=== PATIENT | male | born 1985 | race Hispanic/Latino ===

== ENCOUNTER 2021-11-25 13:01 | Inpatient (IN) | payer SELFPAY ==
--- OUTSIDE RECORDS SUMMARY | 2021-11-25 13:04 | XMS REPORT | Continuity of Care Document ---
:1985 Author Organization [facility] t Address [address] [place] [address] Care Team Providers Name Role Phone Jessy Attending Clinician Unavailable Cezar Calix MD Attending Clinician Cezar CALIX Attending Clinician Unavailable Problems This patient has no known problems. Allergies, Adverse Reactions, Alerts Allergy Allergy Status Severity Reaction(s) Onset Inactive Treating Comm ents Source Name Type Date Date Clinician NO KNOWN Drug Active Univers ALLERGIE Class ity of [facility] Social History Social Habit Start Date Stop Date Quantity Comments Source Exposure to Not sure [facility] SARS-CoV-2 (event) [facility] Sex Assigned At [birth year] [facility] 00:00:00 00:00:00 [facility] Smoking Status Start Date Stop Date Source Unknown if ever smoked [facility] Medications Ordered Filled Start Stop Current Ordering Indication Dosage Frequency Signature Comments Components Source Medication Medication Date Date Medication? Clinician (SIG) Name Name cloNIDine 2020- No .1mg 0.1 mg, Univ ers (CATAPRES) 02-03 Oral, ity of tablet 0.1 08:45: 07:39 ONCE, 1 Renato as mg 00 :00 dose, [facility] 02/03/21 at [place] 0345, STAT Vital Signs Vital Name Observation Time Observation Value Comments Source Systolic blood 2021-02-03 07:54:00 157 mm[Hg] Univer sity [facility] Diastolic blood 2021-02-03 07:54:00 99 mm[Hg] Unive [facility] Heart rate 2021-02-03 07:54:00 110 /min [facility] Respiratory rate 2021-02-03 07:54:00 18 /min [facility] Oxygen saturation in 2021-02-03 07:54:00 99 /min [facility] Arterial blood by [facility] Pulse oximetry [place] Body temperature 2021-02-03 07:20:00 36.83 Lisset [facility] Body weight 2021-02-03 07:20:00 117.935 kg [facility] Procedures This patient has no known procedures. Encounters Start End Encounter Admission Attending Care Care Encounter Source Date/Time Date/Time Type Type Clinicians Facility Department ID 2021-09-24 Outpatient [facility] [id number] [facility] [address] 13:03:03 [id number] [facility]es [facility] 2021-09-24 Outpatient Jessy, [facility]ML[facility] [id number] [address] 12:06:22 [place] [id number] kes - [facility] l Outpati ent [facility] 2021-02-03 2021-02-03 Emergency Fifi, TRAUMA [id number] Univers 02:22:00 03:05:00 [facility] [id number] [id number] [id number] [place] 2021-02-03 2021-02-03 Emergency X FIFI, [facility] ERT [id number] Univers 02:22:00 02:22:00 KISHA blanco [facility] 2021-01-09 2021-01-09 [facility] [id number] [facility] 2020-07-17 2020-07-17 [facility] [id number] [facility] 00:[facility]00 [facility] ent Clinics Results Test Description Test Time Test Comments Results Result Comments Source LIPID PANEL 2021-09-05 03:42:47 Test Item Value Reference Range Interpretation Comme nts CHOLESTEROL (test code = 2210) 285 MG/DL <200 H TRIGLYCERIDES (test code = 2232) 195 MG/DL <150 H HDL CHOLESTEROL (test code = 60 MG/DL >39 2219) CALC LDL CHOL (test code = 2237) 188 MG/DL <100 H NOTE: CALCULATED LDL IS BASED ON MANE-CARABALLO METHOD WHICHINCLUDES A DJUSTABLE TRIGLYCERIDE:VL DL CHOLESTEROL RATIO.THIS FACT OR VARIES BY MEASURED TRIGLY CERIDE AND NON-HDLCHOLESTE ROL CONCENTRATIONS WITH INCREASED CALCULATED LDL SEENIN HIGHER T RIGLYCERIDE OR LOWER NON-HDL S PECIMENS. FOR MOREINFORMATION , SEE CLIENT ANNOUNCEMENT AT [email or web address] RATIO LDL/HDL (test code = 3.13 RATIO <3.55 2237) COMPREHENSIVE METABOLIC [id number] 03:42:47 Test Item Value Reference Range Interpretation Comments GLUCOSE (test code = 100 MG/DL 70-99 H 2216) BUN (test code = 12 MG/DL 6-20 2207) CREATININE (test 0.78 MG/DL 0.80-1.40 L EFFECTIVE code = 221) 08/11/2021, [facility] HAS IMPLEMENTED THE NKF-ASN RECOMME NDED KD-EPI EGF R REFIT CALCULATI ON THAT DOES NOT I NCLUDE A COEFFICIENT FORRACE. FOR MO RE INFORMATION, SE E ANNOUNCEMENT [email or web address] eGFR (2020 CKD-EPI) 119 >60 (test code = 51397) ML/MIN/1.73 CALC BUN/CREAT (test 15 RATIO 6-28 code = 2235) SODIUM (test code = 138 MEQ/L 079-143 7659) POTASSIUM (test code 4.3 MEQ/L 3.5-5.4 = 2227) CHLORIDE (test code 100 MEQ/L 95-107 = 2215) CARBON DIOXIDE (test 28 MEQ/L 19-31 code = 2206) CALCIUM (test code = 10.0 MG/DL 8.5-10.5 2208) PROTEIN, TOTAL (test 7.8 G/DL 6.1-8.3 code = 2229) ALBUMIN (test code = 4.8 G/DL 3.5-5.2 2200) CALC GLOBULIN (test 3.0 G/DL 1.9-3.7 code = 2240) CALC A/G RATIO (test 1.6 RATIO 1.0-2.6 code = 2234) BILIRUBIN, TOTAL 0.8 MG/DL See_Comment [Automated message] (test code = 2207) The syste m which generated this result transmitted ref erence range: <=1.2. T he reference range was not used to int erpret this result as normal/abnormal . ALKALINE PHOSPHATASE 81 U/L 40-117 (test code = 2203) AST (test code = 60 U/L 9-50 H 2217) ALT (test code = 104 U/L 5-50 H UNLE SS 2218) OTHERWISE INDIC ATED, ALL TESTING PER FORMED [facility], I [place]. [address] [facility] [place] [address] LABORATORY DIRE CTOR: LISA GANN M.D. CLIA NUMBER [id number] CAP ACCREDITATION N O. [id number]
[2021-11-25] MEDS ORDERED: MORPHINE 4 MG/ML SYR ONE (13:45)
[2021-11-25] MEDS ORDERED: ONDANSETRON 4 MG/2 ML VIAL ONE (13:45)
[2021-11-25] MEDS ORDERED: NA CHLORIDE 0.9% 1,000 ML ONE ×3 (13:45→21:02)
[2021-11-25 13:57] LABS: Absolute Lymphocytes (CBC) 1.1 K/uL (0.7-4.9); Hematocrit 40.3 % (39.6-49.0); Lymphocytes % 12.5 % (15.3-44.8); MPV 6.4 fL (7.6-11.3); RBC Red Blood Cell Count 4.56 M/uL (4.33-5.43)
[2021-11-25 14:17] LABS: ALT/SGPT 78 U/L (12-78); AST/SGOT 31 U/L (15-37); Albumin 3.6 g/dL (3.4-5.0); Alkaline Phosphatase 82 U/L (45-117); BUN Blood Urea Nitrogen 13 mg/dL (7-18); Bicarbonate 24 mmol/L (21-32); Glucose Level 114 mg/dL (74-106); Lipase 39 U/L (73-393); Potassium 4.1 mmol/L (3.5-5.1); Protein, Total 7.9 g/dL (6.4-8.2); Sodium Level 135 mmol/L (136-145)
--- NOTE | 2021-11-25 14:39 | RAD REPORT ---
EXAM DESCRIPTION: CTAbdomen Pelvis W Contrast - 11/25/2021 2:32 pm CLINICAL HISTORY: Abdominal pain. rectal pain COMPARISON: No comparisons TECHNIQUE: Biphasic CT imaging of the abdomen and pelvis was performed with 100 ml non-ionic IV cont rast. All CT scans are performed using dose optimization technique as appropriate and may include automated exposure control or mA/KV adjustment according to patient size. FINDINGS: The lung bases are clear. The liver is diffusely fatty. Spleen, pancreas, adrenal glands and kidneys are within normal limits. No bowel obstruction, free air, free fluid or abscess. Moderate fat containing inguinal hernias. The appendix is normal. Small left perirectal abscess is suspected measuring 19 x 19 mm. No evidence of s ignificant lymphadenopathy. No suspicious bony findings. IMPRESSION: 19 mm left perirectal abscess suspected. Moderate fat containing bilateral inguinal hernias. Fatty liver.
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
[2021-11-25] MEDS ORDERED: ACETAMINOPHEN 500 MG TAB PO PRN (15:10)
[2021-11-25] MEDS ORDERED: ONDANSETRON 4 MG/2 ML VIAL IV PRN (15:10)
[2021-11-25] MEDS ORDERED: HYDROCODONE/APAP 7.5/325 MG TAB PO PRN (15:15)
[2021-11-25] MEDS ORDERED: NA CHLORIDE 0.9% 100 ML IV ONE (15:20)
--- NOTE | 2021-11-25 15:20 | P.HP ---
Certification for Inpatient Patient admitted to: Inpatient With expected LOS: >2 Midnights Practitioner: I am a practitioner with admitting privileges, knowledge of patient current condition, hospital course, and medical plan of care. Services: Services provided to patient in accordance with Admission requirements found in Title 42 Section 412.3 of the Code of Federal Regulations Patient History Date of Service: 11/25/21 Reason for admission: Rectal abscess. History of Present Illness: 36-year-old male patient comes emergency room complaining of pain in the rectum area for the past couple of days. He has had recurrent pain over the past couple of days which is not developing an abscess and he also had associated fever chills. He decided to come into the emergency room for care and in the ED he had imaging done that revealed a perirectal abscess which perhaps is ready for I&D. He was started on empiric antibiotic therapy of Zosyn and he was asked to be evaluated by surgeon for incision and drainage procedure. Prior to encounter he denied any overt episode of fever, nausea, vomiting. He did feel lethargic. Allergies No Known Allergies Allergy (Unverified 06/02/16 17:22) Home Medications: Hydrocodone Bit/Acetaminophen [Hydrocodon-Acetaminoph 7.5-325] 1 each PO Q4HP PRN #20 tablet 03/20/12 Mag Hydroxide 8% [Milk Of Magnesia] 30 ml PO PRN PRN #0 ucup 03/20/12 - Social History Alcohol use: Yes CD- Drugs: No Caffeine use: Yes Review of Systems General: Chills, Weakness, Malaise Eyes: Unremarkable ENT: Unremarkable Respiratory: Unremarkable Cardiovascular: Unremarkable Gastrointestinal: Abdominal Pain Genitourinary: Unremarkable Musculoskeletal: Unremarkable Neurological: Unremarkable Physical Examination - Physical Exam General: Alert, Oriented x3 HEENT: Atraumatic, Normocephalic Neck: Supple Respiratory: Clear to auscultation bilaterally Cardiovascular: Regular rate/rhythm, Normal S1 S2 Gastrointestinal: Soft and benign Musculoskeletal: No swelling Neurological: Normal strength at 5/5 x4 extr, Cranial nerves 3-12 intact External genitalia: No edema - Studies Laboratory Data (last 24 hrs) 11/25/21 13:45: Sodium 135 L, Potassium 4.1, BUN 13, Creatinine 0.81, Glucose 114 H, Total Bilirubin 1.0, AST 31, ALT 78, Alkaline Phosphatase 82, Lipase 39 L 11/25/21 13:45: WBC 9.1, Hgb 13.7, Hct 40.3, Plt Count 314 Assessment and Plan - Plan Perirectal: Patient does have a perirectal abscess diagnosed on imaging clinically. He will be kept n.p.o. from midnight for incision and drainage by surgeon. We will continue empiric antibiotic of Zosyn pending for review. Continue narcotic medication for pain relief. VTE Prophylaxis: Lovenox. Code status: Full code. - Advance Directives Does patient have a Living Will: No Does patient have a Durable POA for Healthcare: No
[2021-11-25] MEDS ORDERED: PIPERACIL/TAZO 3.375 GM VIAL IV ONE (15:21)
[2021-11-25] MEDS: NA CHLORIDE 0.9% 1,000 ML IV SCH (16:00)
[2021-11-25 18:17] VITALS: BMI 33.9
[2021-11-25] MEDS ORDERED: INFLUENZA VACCINE (for 6+ mo) 0.5 ML DOSE IMVAC ONE (19:00)
[2021-11-25] MEDS ORDERED: ENOXAPARIN 40 MG/0.4 ML SQ ONE (21:02)
[2021-11-25] MEDS ORDERED: MORPHINE 2 MG/ML SYR ONE (21:02)
[2021-11-25] MEDS: MORPHINE 2 MG/ML SYR IV PRN (21:05)
[2021-11-25] MEDS: ENOXAPARIN 40 MG/0.4 ML SQ SCH (21:05)
[2021-11-26] MEDS: NA CHLORIDE 0.9% 1,000 ML IV SCH ×3 (01:24→16:23)
[2021-11-26 03:43] LABS: Protime INR 1.04
[2021-11-26 03:45] LABS: Hematocrit 38.7 % (39.6-49.0); Lymphocytes % 24.7 % (15.3-44.8); MPV 6.6 fL (7.6-11.3); RBC Red Blood Cell Count 4.42 M/uL (4.33-5.43)
[2021-11-26 03:52] LABS: BUN Blood Urea Nitrogen 10 mg/dL (7-18); Bicarbonate 27 mmol/L (21-32); Glucose Level 94 mg/dL (74-106); Potassium 3.7 mmol/L (3.5-5.1); Sodium Level 137 mmol/L (136-145)
--- NOTE | 2021-11-26 08:41 | P.PN ---
Subjective Date of Service: 11/27/21 Chief Complaint: Rectal abscess. Subjective: No new changes Physical Examination - Vital Signs Temperature: 98.3 F Blood Pressure: 128/91 Pulse: 69 Respirations: 16 Pulse Ox (%): 97 - Physical Exam General: Alert, Oriented x3 HEENT: Atraumatic, Normocephalic Respiratory: Normal air movement Cardiovascular: Regular rate/rhythm, Normal S1 S2 Gastrointestinal: Soft and benign, Other (rectal pain) Neurological: Normal speech, Normal strength at 5/5 x4 extr, Cranial nerves 3-12 intact - Studies Laboratory Data (last 24 hrs) 11/25/21 13:45: Sodium 135 L, Potassium 4.1, BUN 13, Creatinine 0.81, Glucose 114 H, Total Bilirubin 1.0, AST 31, ALT 78, Alkaline Phosphatase 82, Lipase 39 L 11/25/21 13:45: WBC 9.1, Hgb 13.7, Hct 40.3, Plt Count 314 Assessment And Plan - Plan Perirectal abscess: Scheduled for incision and drainage of rectal abscess today. We will continue sitz bath and and wound management as per surgery recommendation. We will continue Zosyn for management of perirectal abscess. Pain control with as needed morphine Hypertension: we will monitor vitals per unit protocol and continue antihypertensive medications. VTE Prophylaxis: Lovenox.
[2021-11-26] MEDS ORDERED: MORPHINE 2 MG/ML SYR ONE (08:42)
[2021-11-26] MEDS ORDERED: NA CHLORIDE 0.9% 1,000 ML ONE (08:43)
[2021-11-26] MEDS ORDERED: INFLUENZA VACCINE (for 6+ mo) 0.5 ML DOSE IMVAC ONE (08:43)
[2021-11-26] MEDS ORDERED: NA CHLORIDE 0.9% 100 ML IV ONE (08:54)
[2021-11-26] MEDS ORDERED: PIPERACIL/TAZO 3.375 GM VIAL IV ONE (08:54)
[2021-11-26] MEDS: ENOXAPARIN 40 MG/0.4 ML SQ SCH (09:00)
[2021-11-26] MEDS: PIPER TAZO 3.375 GM in NA CHLORIDE 0.9% 100 ML IV SCH ×2 (09:00→17:46)
[2021-11-26] MEDS: MORPHINE 2 MG/ML SYR IV PRN ×3 (09:22→21:54)
[2021-11-26 09:58] LABS: Urine Blood Trace-intact (Negative); Urine Glucose Negative (Negative); Urine Protein Negative (Negative); Urine Specific Gravity >=1.030 (1.005-1.030); Urine pH 6.5 (5.0-7.0)
[2021-11-26 10:20] LABS: Urine Appearance Clear (Clear); Urine Bilirubin Negative (Negative); Urine Blood Negative (Negative); Urine Color Yellow (Yellow); Urine Glucose Negative (Negative); Urine Microscopic Reflex NO UMIC; Urine Protein Negative (Negative); Urine Urobilinogen 0.2 mg/dL (0.2-1.0)
[2021-11-26] MEDS ORDERED: Ringers Lactate 1,000 ML IV ONE (13:15)
[2021-11-26] MEDS ORDERED: BUPIVACAINE 0.5% PF 10 ML VIAL ONE (13:40)
[2021-11-26] MEDS ORDERED: FENTANYL CITR 100 MCG/2 ML ONE (13:46)
[2021-11-26] MEDS ORDERED: MIDAZOLAM HCL 2 MG/2 ML INJ ONE (13:46)
[2021-11-26] MEDS ORDERED: propofoL 200 MG/20 ML VIAL IV ONE (13:46)
[2021-11-26] MEDS ORDERED: LIDOCAINE 2% MPF 5 ML VIAL ONE (13:46)
[2021-11-26] MEDS ORDERED: ONDANSETRON 4 MG/2 ML VIAL ONE (13:46)
[2021-11-26] MEDS ORDERED: LIDOCAINE 1% W/EPI 1:100,000 10 ML VIAL ONE (14:51)
[2021-11-26] MEDS ORDERED: LIDOCAINE 1% W/EPI 1:100,000 10 ML VIAL IJ ONE (15:12)
--- NOTE | 2021-11-26 15:27 | P.OP ---
Preoperative diagnosis: RIGHT Perirectal Abscess Postoperative diagnosis: RIGHT Perirectal Abscess Primary procedure: Incision and Drainage of RIGHT Perirectal Abscess Anesthesia: GETA + Local Estimated blood loss: <2cc Specimen: cultures Findings: ~ 2cm perirectal abscess Complications: None Transferred to: Recovery Room Condition: Good
[2021-11-26] MEDS: HYDROMORPHONE HCL 1 MG/ML INJ ONE ×2 (15:53→15:59)
[2021-11-26 15:56] VITALS: O2SAT 97
[2021-11-26] MEDS: HYDROCODONE/APAP 5/325 MG TAB PO PRN (17:45)
[2021-11-27] MEDS: PIPER TAZO 3.375 GM in NA CHLORIDE 0.9% 100 ML IV SCH ×2 (00:25→08:15)
[2021-11-27] MEDS: HYDROCODONE/APAP 5/325 MG TAB PO PRN ×2 (00:31→09:56)
[2021-11-27] MEDS: NA CHLORIDE 0.9% 1,000 ML IV SCH ×2 (00:31→08:00)
--- NOTE | 2021-11-27 02:35 | OP ---
Date of Procedure: 11/26/2021 Surgeon: Kaushik Gaona MD, Preoperative Diagnosis: Right perirectal abscess. Postoperative Diagnosis: Right perirectal abscess. Procedure Performed: Incision and drainage of right perirectal abscess. Anesthesia: General endotracheal plus local with 0.25% Marcaine. Estimated Blood Loss: 50 cc. Specimen: Culture sent for aerobic and anaerobic speciation. Findings: Approximately 2 cm perirectal abscess. Complications: None. The patient transferred to recovery room in good condition. Procedure In Detail: After informed consent was obtained, the patient was brought to the operating r oom, prepped and draped in the usual sterile fashion. After adequate anesthesia was achieved, the pa tient was placed in the lithotomy position. I palpated the area of the right buttock near the perire ctal skin. I then made an incision over the area of fluctuance and immediately encountered an absces s material. I then palpated the area and broke up any loculations that were evident in this area. C ultures were sent for both aerobic and anaerobic speciation from the obvious abscess in this area, it was then irrigated. Hemostasis was easily achieved with electrocautery. The wound was then packed after being irrigated once again with half-inch iodoform packing. A sterile dressing was placed on t op. The patient tolerated the procedure well without evidence of complication and transferred to PACU in good condition. All counts were correct at the end of the case. KIRSTEN/DANG Voice ID: [id number] Report ID: [id number]
[2021-11-27] MEDS: ENOXAPARIN 40 MG/0.4 ML SQ SCH (08:15)
[2021-11-27] MEDS: MORPHINE 2 MG/ML SYR IV PRN (08:16)
[2021-11-27 09:55] VITALS: BP 128/91; TEMP 98.3
--- NOTE | 2021-11-27 09:58 | P.DS ---
Admission Date: 11/26/21 Discharge Date: 11/27/21 Disposition: ROUTINE DISCHARGE Discharge Condition: GOOD Reason for Admission: Rectal abscess. Procedures: Incision and drainage of perirectal abscess. Brief History of Present Illness: 36-year-old male patient comes emergency room complaining of pain in the rectum area for the past couple of days. He has had recurrent pain over the past couple of days which is not developing an abscess and he also had associated fever chills. He decided to come into the emergency room for care and in the ED he had imaging done that revealed a perirectal abscess which perhaps is ready for I&D. He was started on empiric antibiotic therapy of Zosyn and he was asked to be evaluated by surgeon for incision and drainage procedure. Prior to encounter he denied any overt episode of fever, nausea, vomiting. He did feel lethargic. Hospital Course: He was evaluated for incision and drainage perirectal abscess which was performed yesterday. He is stable postoperatively. Surgeon recommended pain control and oral antibiotic with sitz bath procedure for management of perirectal incision 1. He will follow her up with primary care doctor and surgeon as scheduled. Vital Signs/Physical Exam: Temp Pulse Resp BP Pulse Ox 98.3 F 69 16 128/91 H 97 11/27/21 09:55 11/27/21 09:55 11/27/21 09:55 11/27/21 09:55 11/27/21 09:55 Laboratory Data at Discharge: WBC 8.0 K/uL (4.3-10.9) 11/26/21 02:57 Hgb 13.3 g/dL (13.6-17.9) L 11/26/21 02:57 Hct 38.7 % (39.6-49.0) L 11/26/21 02:57 Plt Count 294 K/uL (152-406) 11/26/21 02:57 PT 11.4 SECONDS (9.5-12.5) 11/26/21 02:57 INR 1.04 11/26/21 02:57 Sodium 137 mmol/L (136-145) 11/26/21 02:57 Potassium 3.7 mmol/L (3.5-5.1) 11/26/21 02:57 BUN 10 mg/dL (7-18) 11/26/21 02:57 Creatinine 0.66 mg/dL (0.55-1.3) 11/26/21 02:57 Glucose 94 mg/dL (74-106) 11/26/21 02:57 Total Bilirubin 1.0 mg/dL (0.2-1.0) 11/25/21 13:45 AST 31 U/L (15-37) 11/25/21 13:45 ALT 78 U/L (12-78) 11/25/21 13:45 Alkaline Phosphatase 82 U/L (45-117) 11/25/21 13:45 Lipase 39 U/L (73-393) L 11/25/21 13:45 Home Medications: Amlodipine [Norvasc*] 1 tab PO DAILY 11/25/21 Lisinopril [Zestril] 1 tab PO DAILY 11/25/21 Physician Discharge Instructions: - remove packing daily and after every bowel movement - irrigate with sterile saline - repack wound with 1/2" iodoform packing - cover with sterile gauze and tape Diet: Regular Activity: Ad abad Followup: Kaushik Gaona MD [ACTIVE - CAN ADMIT] - NONE,NONE [Primary Care Provider] -
== END 2021-11-27 11:15 | disposition home or self-care (01) | DRG 346 ==
LOC: ER 13:01 → ERHOLD 15:39 → 2ND 11-26 13:38 → OBSVTOIN 11-26 15:00
PROVIDERS: ADMIT Internal Medicine Nephrology; ATTEND Internal Medicine Nephrology
PROC: 0D9P0ZX Drainage of Rectum, Open Approach, Diagnostic (ICD-10-PCS; principal; 2021-11-26 14:00)
DX: K61.1 Rectal abscess (principal); I10 Essential (primary) hypertension; Z20.822 Contact with and (suspected) exposure to COVID-19; Z23 Encounter for immunization
CPT/HCPCS: 36415; 74177; 80048; 80053; 81003; 83690; 85025; 85610; 87070; 87075; 87205; 90471; 96374; 96375; 99284; G0378; J1170; J1650; J2250; J2270; J2405; J2543; J2704; J3010; J7030; J7120; Q2035; Q9967; U0003

== ENCOUNTER 2022-04-30 11:25 | Day surgery (SDC) | payer SELFPAY ==
[2022-04-30] MEDS ORDERED: CEFAZOLIN 2 GM IN 0.9% NACL 2 GM/100 ML BAG ONE (11:55)
[2022-04-30] MEDS ORDERED: Ringers Lactate 1,000 ML IV ONE (11:55)
[2022-04-30 12:03] LABS: SARS-CoV-2 Antigen Rapid Res Negative (Negative)
[2022-04-30] MEDS ORDERED: propofoL 200 MG/20 ML VIAL IV ONE (12:17)
[2022-04-30] MEDS ORDERED: MIDAZOLAM HCL 2 MG/2 ML INJ ONE (12:18)
[2022-04-30] MEDS ORDERED: LIDOCAINE 2% MPF 5 ML VIAL ONE (12:19)
[2022-04-30] MEDS ORDERED: ONDANSETRON 4 MG/2 ML VIAL ONE ×2 (12:19→13:10)
[2022-04-30] MEDS ORDERED: FENTANYL CITR 100 MCG/2 ML ONE ×2 (12:19→13:33)
[2022-04-30] MEDS ORDERED: ROCURONIUM 50 MG/5 ML VIAL IV ONE (12:58)
[2022-04-30] MEDS ORDERED: SODIUM HYPOCHLORITE 0.25% 473 ML ONE (13:01)
[2022-04-30] MEDS ORDERED: dexAMETHasone 10 MG/ML VIAL ONE (13:09)
[2022-04-30] MEDS ORDERED: SUGAMMADEX SODIUM 200 MG/2 ML VIAL IV ONE (13:23)
[2022-04-30] MEDS ORDERED: METHYLENE BLUE 0.5% 10 ML AMP ONE (13:24)
--- NOTE | 2022-04-30 13:34 | P.OP ---
Preoperative diagnosis: LEFT buttock pilonidal cyst with abscess Postoperative diagnosis: LEFT buttock pilonidal cyst with abscess Primary procedure: Excision of pilodial cyst with sinus Anesthesia: GETA + Local Estimated blood loss: <20cc Specimen: debridement tissue, cultures Findings: sinus tract in starburst pattern ~ 4cm round cavity Complications: None Transferred to: Recovery Room Condition: Good
[2022-04-30] MEDS ORDERED: EPINEPHRINE INH 0.5 ML VIAL IH ONE (14:02)
[2022-04-30] MEDS: HYDROMORPHONE HCL 1 MG/ML INJ ONE ×2 (14:35→14:40)
[2022-04-30 15:29] VITALS: BP 120/80; TEMP 96.9; O2SAT 97
--- NOTE | 2022-04-30 18:56 | OP ---
Date of Procedure: 04/30/2022 Surgeon: Kaushik Gaona MD, Preoperative Diagnosis: Left buttock pilonidal cyst with abscess. Postoperative Diagnosis: Left buttock pilonidal cyst with abscess. Procedure Performed: Excision of pilonidal cyst with sinus. Anesthesia: General endotracheal plus local with 1% Marcaine. Estimated Blood Loss: Less than 20 cc. Specimen: Debridement of tissue and culture sent for aerobic and anaerobic speciation. Findings: Pilonidal cyst with sinus with abscess on the left inner gluteal cleft extending for appro ximately 4 cm deep cavity. Complications: Patient had no complications. Disposition: Patient was transferred to the recovery room in good condition. Procedure In Detail: After informed consent was obtained, patient was prepped and draped in the usua l sterile fashion. After adequate anesthesia, I made an injection of the skin around an obvious katherine nidal cyst on the left buttock circumferentially around the area. I then made an incision using a 15 blade down to subcutaneous tissues. I had preinjected methylene blue at the beginning of the proced ure. At this point, as I continued with the tissue planes following the methylene blue tract, absces s material was encountered. This was cultured for aerobic, anaerobic speciation. I then continued b y dissection down to follow all the methylene blue. Finger-like extensions and a somewhat starburst pattern of methylene blue extending then down into the deeper tissue planes and into the subcutaneous fat, I dissected it circumferentially after I removed all affected tissues. After this was performe d, it was sent off for pathologic examination. I then irrigated the area copiously and achieved hemo stasis with electrocautery. The wound was then packed with half-inch packing soaked in Dakin's damp to dry and a sterile dressing was placed over top. The patient tolerated the procedure without evide nce of complication, transferred in good condition. All counts were correct at the end of the case. TK/MODL Voice ID: [id number] Report ID: [id number]
== END 2022-04-30 15:55 | disposition home or self-care (01) ==
LOC: OR 11:25
PROVIDERS: ATTEND Surgery
PROC: 0JB90ZZ Excision of Buttock Subcutaneous Tissue and Fascia, Open Approach (ICD-10-PCS; principal; 2022-04-30 12:30)
DX: L05.01 Pilonidal cyst with abscess (principal); Z20.822 Contact with and (suspected) exposure to COVID-19; I10 Essential (primary) hypertension; E66.9 Obesity, unspecified
CPT/HCPCS: 36415; 87070; 87075; 87077; 87186; 87205; 87811; 88304; J0690; J1100; J1170; J2001; J2250; J2405; J2704; J3010; J7120; Q9968

== ENCOUNTER 2022-07-31 09:16 | Day surgery (SDC) | payer SELFPAY ==
[2022-07-31] MEDS ORDERED: MIDAZOLAM HCL 2 MG/2 ML INJ ONE (09:45)
[2022-07-31] MEDS ORDERED: SODIUM HYPOCHLORITE 0.25% 473 ML ONE (09:45)
[2022-07-31] MEDS ORDERED: BUPIVACAINE 0.25% PF 10 ML VIAL ONE (09:45)
[2022-07-31] MEDS: Ringers Lactate 1,000 ML IV ONE ×2 (09:45→09:47)
[2022-07-31] MEDS ORDERED: FENTANYL CITR 100 MCG/2 ML ONE ×2 (09:51→12:03)
[2022-07-31] MEDS ORDERED: dexAMETHasone 10 MG/ML VIAL ONE (09:52)
[2022-07-31] MEDS ORDERED: LIDOCAINE 2% MPF 5 ML VIAL ONE (09:52)
[2022-07-31] MEDS ORDERED: propofoL 200 MG/20 ML VIAL IV ONE ×2 (09:52→09:58)
[2022-07-31] MEDS ORDERED: ONDANSETRON 4 MG/2 ML VIAL ONE (09:52)
[2022-07-31] MEDS ORDERED: METHYLENE BLUE 0.5% 10 ML AMP ONE (10:25)
[2022-07-31] MEDS ORDERED: KETOROLAC 30 MG/ML INJ ONE (10:54)
--- NOTE | 2022-07-31 10:59 | P.OP ---
Preoperative diagnosis: Perianal Abscess / Hidradenitis Postoperative diagnosis: Perianal Abscess / Hidradenitis Primary procedure: Exam under Anesthesia Secondary procedure: Debridement of Perineal Hidradenitis Other procedure(s): Placement of Seton Anesthesia: GETA + Local Estimated blood loss: 20cc Specimen: Debridement tissue Findings: 2 fistulas noted - perineal, buttock Complications: None Implants: Vessel Loop placed in fistula Transferred to: Recovery Room Condition: Good
[2022-07-31] MEDS ORDERED: FENTANYL CITR 100 MCG/2 ML IV ONE (12:09)
[2022-07-31] MEDS ORDERED: HYDROCODONE/APAP 10/325 TAB ONE (12:38)
[2022-07-31 13:34] VITALS: TEMP 98.4
[2022-07-31 14:44] VITALS: BP 142/87; O2SAT 96
--- NOTE | 2022-07-31 21:09 | OP ---
Date of Procedure: 07/31/2022 Surgeon: Kaushik Gaona MD, Preoperative Diagnosis: Perineal abscess/hidradenitis. Postoperative Diagnosis: Perineal abscess/hidradenitis. Procedures Performed: 1.Exam under anesthesia. 2.Debridement of perineal hidradenitis. 3.Injection of methylene blue to discover 2 fistulas. 4.Placement of a seton into the perineum 12 o'clock to rectum fistula. Anesthesia: General endotracheal plus local. Estimated Blood Loss: 20 cc. Specimen: Debridement tissue. Findings: 2 fistulas noted, one in the perineal area at 12 o'clock and a second one extending to the left buttock, both following Goodsall's rule. Complications: None. Implants: Vessel loop placed in the perineal fistula. Disposition: The patient was transferred to recovery room in good condition. Indications: The patient is a 37-year-old male known to me from previous episode of hidradenitis of the buttock area. This was treated with simple debridement when he had an abscess in the area. He u ltimately healed that area and was noted to have significant improvement. He presented, however, onc e again with a new area of perineal fullness, not related to his previous buttock wound by any known method. At this point, he was examined and had tenderness, abscess material draining from the perine um concerning for hidradenitis suppurativa. As such, we opted to bring him to the operating room for exam under anesthesia as well as debridement of this abscess in the perineum. Procedure In Detail: After informed consent was obtained, the patient was prepped and draped in usua l sterile fashion in lithotomy position. After adequate anesthesia was achieved, I injected addition al local anesthesia into the perineal area behind the base of the scrotum, not involving the scrotal tissue and not involving the anus. I made a circumferential incision for approximately 3.5 cm down t hrough and involving the area of obvious abscess and fullness. I drained out clear fluid, however, a t this time and circumferentially dissected this using electrocautery. I grasped with an Allis clamp and dissected free the top layer of tissue and noted there to be epithelialized tissue consistent wi th a fistula. At this point, I brought methylene blue onto the field and placing an Angiocath into t his tract, I injected methylene blue. At this point, methylene blue was noted to be coming out of th e anus. After placement of an anoscope, methylene blue was emanating from a fistulous connection at 12 o'clock in the rectum. As such a probe was passed at this point, and passed a vessel loop through this area and it was secured using a 2-0 silk suture to stent this tract open. At this point, I not ed methylene blue in the previous buttock incision area. I made a small jocelyn incision in this and al lowed the methylene blue to drain out. An additional fistulous connection was appreciated at this po int. However, it was quite thin and as such, it was cleaned out. I then irrigated the area copiousl y and examined the anus using anoscopy and noted the granulation tissue consistent with these 2 fistu las. At this point, I then achieved hemostasis with minimal electrocautery in the area and reapproxi mated the skin on the scrotal side using a 3-0 interrupted nylon suture leaving the stented fistula o pen and exposed with the vessel loop in place. I then packed this with iodoform packing and a steril e dressing was placed over top. A piece of Gelfoam was passed into the anus at this point for passag e with the first bowel movement. At this point, the patient tolerated the procedure without evidence of any complication and was transferred to PACU in good condition. All counts were correct at the end of the case. KIRSTEN/DANG Voice ID: [id number] Report ID: [id number]
== END 2022-07-31 12:55 | disposition home or self-care (01) ==
LOC: OR 09:16
PROVIDERS: ATTEND Surgery
PROC: 0WH Anatomical Regions, General, Insertion (ICD-10-PCS; 2022-07-31)
PROC: 0DJD8ZZ Inspection of Lower Intestinal Tract, Via Natural or Artificial Opening Endoscopic (ICD-10-PCS; 2022-07-31)
PROC: 0JBB0ZZ Excision of Perineum Subcutaneous Tissue and Fascia, Open Approach (ICD-10-PCS; principal; 2022-07-31 10:15)
DX: L73.2 Hidradenitis suppurativa (principal); K60.5 Anorectal fistula
CPT/HCPCS: 88304; J1100; J2001; J2250; J2405; J2704; J3010; J7120; Q9968

== ENCOUNTER 2022-10-05 07:58 | Day surgery (SDC) | payer BC, SELFPAY ==
[2022-10-05] MEDS ORDERED: LIDOCAINE JELLY 2% 5 ML SYRINGE TOP ONE (08:14)
[2022-10-05] MEDS ORDERED: Ringers Lactate 1,000 ML IV ONE (08:14)
[2022-10-05] MEDS ORDERED: CEFAZOLIN SODIUM 2 GM/VIAL ONE (08:14)
[2022-10-05] MEDS ORDERED: BUPIVACAINE 0.25% PF 30 ML VIAL ONE (08:20)
[2022-10-05] MEDS ORDERED: propofoL 200 MG/20 ML VIAL IV ONE ×2 (09:05→09:22)
[2022-10-05] MEDS ORDERED: FENTANYL CITR 100 MCG/2 ML ONE ×2 (09:05→09:34)
[2022-10-05] MEDS ORDERED: MIDAZOLAM HCL 2 MG/2 ML INJ ONE (09:05)
[2022-10-05] MEDS ORDERED: LIDOCAINE 2% MPF 5 ML VIAL ONE (09:07)
[2022-10-05] MEDS ORDERED: ROCURONIUM 50 MG/5 ML VIAL IV ONE (09:07)
[2022-10-05] MEDS ORDERED: ONDANSETRON 4 MG/2 ML VIAL ONE (09:07)
[2022-10-05] MEDS ORDERED: METHYLENE BLUE 0.5% 10 ML AMP ONE (09:55)
--- NOTE | 2022-10-05 10:18 | P.OP ---
Preoperative diagnosis: Chronic Recurrent Perianal Fistula x 2 Postoperative diagnosis: Chronic Recurrent Perianal Fistula x 2 Primary procedure: Placement of Porcine Fistula Plug Secondary procedure: Injection of Bioglue in 2nd Fistula Other procedure(s): Exam under anesthesia Anesthesia: GETA + Local Estimated blood loss: <5cc Specimen: none Findings: 2 fistulas - perineal anterior and posterior both midline @ 12 oclock Complications: None Implants: Cook Porcine Fistula Plug, Bioglue Transferred to: Recovery Room Condition: Good
[2022-10-05] MEDS ORDERED: KETOROLAC 30 MG/ML INJ ONE (10:24)
[2022-10-05] MEDS: HYDROMORPHONE HCL 1 MG/ML INJ ONE ×3 (10:48→11:02)
[2022-10-05] MEDS ORDERED: HYDROMORPHONE HCL 1 MG/ML INJ ONE (10:59)
[2022-10-05 11:00] VITALS: O2SAT 95
[2022-10-05 11:23] VITALS: BP 147/92; TEMP 97.6
--- NOTE | 2022-10-05 11:49 | OP ---
Date of Procedure: 10/05/2022 Surgeon: Kaushik Gaona MD, Preoperative Diagnosis: Chronic recurrent perianal fistula x2. Postoperative Diagnosis: Chronic recurrent perianal fistula x2. Procedures Performed: 1.Exam under anesthesia. 2.Placement of porcine fistula plug. 3.Injection of BioGlue into second fistula plug. Anesthesia: General endotracheal plus local with 0.25% Marcaine. Estimated Blood Loss: Less than 5 cc. Specimen: None. Findings: There were 2 fistulas noted at the 12 o'clock midline position. There was an anterior fis hamilton and posterior fistula both communicated with 2 intra rectal supralevator fistulas. Complication: None. Implants: Cook porcine fistula plug into posterior fistula, posterior/deep fistula, superficial fist yolanda. Had BioGlue injected. Disposition: The patient transferred to recovery room in good condition. Procedure In Detail: After informed consent was obtained, patient was brought to the operating room, prepped and draped in the usual sterile fashion. After adequate anesthesia was achieved, I performe d a digital rectal exam. The patient remained in lithotomy position throughout. I then used sequent ially larger anoscope to visualize the perianal fistulas. A seton was in place in the inferior super ficial perianal fistula. I inspected the rectum at this point and found there to be 2 fistulas, 1 de ep, 1 superficial. The superficial as stated had the seton in place. The deep and superficial, both appeared to be above the anal musculature above the dentate line quite easily. I injected these wit h hydrogen peroxide and noted bubbling through the seton and through an additional posterior perineal fistula which was closer to the scrotum, but not involving the scrotum, there with at least 3 cm fro m the confluence of the scrotum. However, both fistulas also drained intra rectally. Therefore, all 4 of these holes ultimately connected and were found to be in continuity. At this point, I passed a fistula passer with a scrubbing brush through the distal fistula which was the larger. It did not h ave a seton in. I then injected the area once again with hydrogen peroxide and scrubbed the fistula tract. I then brought the fistula porcine plug and passed it through the canal, securing it to the r ectal mucosa using 2-0 PDS suture in a circumferential fashion with 4 sutures securing it well to the mucosa. I then secured the tail aspect at the superficial skin using the same set of 2-0 PDS suture . I then cleansed the canal for the superficial fistula, removed the seton and after cleansing the a karrie with hydrogen peroxide and the same said scrubbing brush, I then injected BioGlue into this canal and noted it emanating through all 4 connections as well. At this point, I cleansed the remaining B ioGlue out. No hemostatics were required. I then placed a sterile dressing over the top after the B ioGlue was completely secured, and I ultimately packed the anus with a Gel-Foam soaked in lidocaine sergio goodwin, and the procedure was completed. The patient tolerated the procedure well without evidence of complication and transferred to PACU in good condition. All counts were correct at the end of the ca se. KIRSTEN/DANG Voice ID: [id number] Report ID: [id number]
== END 2022-10-05 11:54 | disposition home or self-care (01) ==
LOC: OR 07:58
PROVIDERS: ATTEND Surgery
PROC: 0HB9XZZ Excision of Perineum Skin, External Approach (ICD-10-PCS; principal; 2022-10-05 09:30)
DX: K60.3 Anal fistula (principal)
CPT/HCPCS: 46707 ×2; 93005; 80048; 36415; J2704 ×2; J2001; J2250; J3010 ×2; J1170 ×2; J7120; J2405